=== PATIENT | male | born 1960 | race Caucasian/White ===

== ENCOUNTER → 2019-11-13 | Outpatient (CLI) | payer OTHER ==
[~2019-11-13] MED LIST: ADVIL200 M1 PO; FISH OIL 1,0001 EAC9 PO; PEPCID AC20 MG PO; ZANAFLEX2 M1 PO
== END ==
LOC: M.PC 08:27
PROVIDERS: ATTEND Physical Medicine & Rehabilitation
DX: M51.16 Intervertebral disc disorders with radiculopathy, lumbar region (principal); M79.604 Pain in right leg; M96.1 Postlaminectomy syndrome, not elsewhere classified

== ENCOUNTER → 2019-11-17 | Outpatient (CLI) | payer OTHER | LOC: M.MRI 17:20 | PROVIDERS: ATTEND Physical Medicine & Rehabilitation | DX: M51.17 Intervertebral disc disorders with radiculopathy, lumbosacral region (principal); M48.07 Spinal stenosis, lumbosacral region; M79.604 Pain in right leg ==

== ENCOUNTER → 2019-11-22 | Outpatient (CLI) | payer OTHER | END | disposition home or self-care (01) | LOC: M.PC 08:15 | PROVIDERS: ATTEND Physical Medicine & Rehabilitation | DX: M54.16 Radiculopathy, lumbar region (principal); Z88.8 Allergy status to other drugs, medicaments and biological substances; Z79.899 Other long term (current) drug therapy ==